=== PATIENT | female | born 1935 | race Caucasian/White ===

== ENCOUNTER 2016-12-30 09:04 | Inpatient (IN) ==
--- NOTE | 2016-12-30 09:22 | Emergency Department Report ---
General Adult HPI - General Chief complaint: Syncope Stated complaint: when standing up she passes out,light headed Time Seen by Provider: 12/30/16 09:20 Source: patient, family Mode of arrival: wheelchair Limitations: no limitations - History of Present Illness HPI narrative: 81-year-old female presents to the emergency department with the chief complaint of 2 syncopal episodes. Patient had the 1st syncopal episode around midnight. She did not suffer any injury with either episode. Patient denies any pain or discomfort. Patient had her 2nd syncopal episode around 7:30 this morning. Patient noted that the syncopal episodes occurred when the residential staff was getting the patient up to walk. Patient denies any pain or discomfort. Patient has no complaints currently. She denies being ill recently. She was at her care facility when the incident occurred. She is currently asymptomatic. - Related Data Home Medications Medication Instructions Recorded Confirmed Acetaminophen 650 mg PO Q4H PRN 12/30/16 12/30/16 Acetaminophen [Pain Reliever] 500 mg PO PRN PRN 12/30/16 12/30/16 Aspirin [[place] Aspirin] 81 mg PO DAILY 12/30/16 12/30/16 Baclofen [Lioresal] 10 mg PO BID 12/30/16 12/30/16 Carbidopa/Levodopa [Rytary ER 3 cap PO BID 12/30/16 12/30/16 23.75 mg-95 mg Cap] Citalopram [Celexa] 10 mg PO DAILY 12/30/16 12/30/16 Cranberry Fruit [Cranberry] 400 mg PO DAILY 12/30/16 12/30/16 Donepezil [Aricept] 10 mg PO HS 12/30/16 12/30/16 Fluticasone Nasal [place] [Flonase] 1 spray TEJAS DAILY 12/30/16 12/30/16 Gabapentin [Neurontin] 400 mg PO HS 12/30/16 12/30/16 Guaifenesin/Dextromethorphan 10 ml PO Q4H PRN 12/30/16 12/30/16 [Guaifenesin Dm Syrup] Levothyroxine Tab [Synthroid] 75 mcg PO ACB 12/30/16 12/30/16 Loratadine [Claritin] 10 mg PO DAILY 12/30/16 12/30/16 Multivitamin with Minerals 1 each PO DAILY 12/30/16 12/30/16 [Kae-M-Kvyg-Minerals] Propylene Glycol/Peg 400 [Systane 1 drop EACH EYE BID PRN 12/30/16 12/30/16 0.3-0.4% Eye Drops] Triamterene/Hydrochlorothiazid 1 each PO DAILY 12/30/16 12/30/16 [Dyazide 37.5-25 Capsule] dilTIAZem HCl [Diltiazem 24Hr ER] 180 mg PO DAILY 12/30/16 12/30/16 Allergies Allergy/AdvReac Type Severity Reaction Status Date / Time morphine Allergy Mild Verified 02/12/08 08:46 procaine Allergy Mild Verified 02/12/08 08:46 Sulfa (Sulfonamide Allergy Mild Verified 02/12/08 08:46 Antibiotics) Review of Systems Constitutional: Denies: fever, chills Eyes: Denies: eye pain, vision change ENT: Denies: ear pain, throat pain Cardiovascular: Denies: chest pain, palpitations Respiratory: Denies: cough, dyspnea Gastrointestinal: Denies: abdominal pain, nausea, vomiting, diarrhea Genitourinary: Denies: urgency, dysuria Musculoskeletal: Denies: back pain, arthralgia Integumentary: Denies: erythema, rash Neurological: Denies: headache, numbness Psychiatric: Denies: anxiety, depression Endocrine: Denies: fatigue, heat or cold intolerance Hematological/Lymphatic: Denies: easy bleeding, easy bruising Allergic/Immunologic: Denies: facial swelling, urticaria PFSH Patient Stated Medical History Alzheimer's Disease Yes Parkinson's Disease Yes Hypertension Yes Hx Urinary Tract Infection Yes Alzheimer's dementia, depression, hypothyroid, UTI, hypertension, abnormality of gait, rhinitis, generalized weakness Surgical History: Colonoscopy Family History: Reviewed and noncontributory - Social History Smoking status: Never smoker Substance use type: does not use Alcohol intake frequency: does not drink Physical Exam - Limitations Limitations: no limitations - General General appearance: alert, in no apparent distress - Normal Exams: Head:: Normocephalic without trauma Eyes:: Pupils are PERRLA w/ EOMI, No scleral icterus, irritation, or foreign bodies noted ENMT:: No facial trauma, nasal exudates, pharyngeal erythema, or exudates are noted Dental: No fractured, loose, or missing teeth noted Neck:: Full range of motion, without adenopathy, JVD, bruits or thyromegaly Chest/Respirations:: Clear all douglass, with good airflow, and symmetry bilaterally Cardiovascular:: Regular rate and rhythm, without murmur or gallop, Pulses 2+ all extremities, capillary refill, <2 seconds all extremities Abdomen:: Bowel sounds positive, soft, non-tender, non-distended, no hepatosplenomegaly, masses or bruits noted Lymphatic:: No lymphadenopathy, or lymphedema noted Musculoskeletal:: No tenderness, or deformity noted, good range of motion, all extremities Integumentary:: No rashes, hives, or bruising noted, hair and nails, without abnormality Neurological:: Patient is alert, and oriented, cranial nerves, motor/sensory/ cerebellar, exams w/o gross deficits, to observation (alert and oriented 4. CN 2-12 intact. Sensation intact. Normal strength. Normal motor. Normal coordination. Normal speech. Absent Babinski bilaterally. Reflexes 2/4 in all extremities. Unremarkable neurological exam. No focal neurologic deficit. Gait unable to be tested due to concern for syncope.) Psychiatric:: Patient exhibits, appropriate attention, emotion and affect Course Vital Signs Temperature 97.6 F 12/30/16 09:10 Pulse Rate 56 L 12/30/16 09:10 Respiratory Rate 20 12/30/16 09:10 Blood Pressure 138/70 12/30/16 09:10 Pulse Oximetry 99 12/30/16 09:10 Temperature 96.3 F L 12/30/16 12:06 Pulse Rate 62 12/30/16 12:11 Respiratory Rate 16 12/30/16 12:11 Blood Pressure 132/76 12/30/16 12:11 Pulse Oximetry 96 12/30/16 12:06 Medical Decision Making - [facility] Narrative Medical decision making narrative: Labs/imaging were discussed in detail with the patient and family and questions are answered. Patient is given 500 mL normal saline intravenously times one with improvement of symptoms. Due to the fact that the patient has had 2 syncopal episodes patient will be admitted to the service of the hospitalist Dr. Gilbert for further evaluation and treatment. Dr. Gilbert is in agreement with the current plan of management. Patient was discussed with Dr. Chapin of cardiology who recommends observation as the patient was noted to have a left bundle branch block on her EKG and no other EKG available for comparison. She is asymptomatic with regards to chest pain or shortness of breath. She has a negative troponin in the emergency Department. Patient is admitted to the hospital in improved condition. Patient and family are in agreement with the current plan of management. - Differential Diagnosis UTI, metabolic process, dehydration, syncope - Lab Data Result diagrams: 12/30/16 09:41 12/30/16 09:41 Lab Results 12/30/16 12/30/16 12/30/16 Range/Units 09:41 09:41 10:08 WBC 8.4 (4.5-11.0) T/MM3 RBC 4.34 (4.00-5.20) M/MM3 Hgb 13.3 (12-16) GM/DL Hct 40.3 (36-46) % MCV 92.9 (80-100) UM3 MCH 30.6 (26-34) UUG MCHC 33.0 (31-37) GM/DL RDW Std Deviation 43.6 (36.9-50.2) FL Plt Count 295 (130-400) T/MM3 MPV 8.7 L (9.4-12.4) UM3 Immature Gran % (Auto) 0.1 (0.0-0.5) % Neut % (Auto) 71.6 H (33-66) % Lymph % (Auto) 19.8 L (23-45) % [place] % (Auto) 6.2 (0-9.0) % Eos % (Auto) 2.1 (0-4) % Baso % (Auto) 0.2 (0-2) % Neut # (Auto) 6.0 (1.8-7.7) T/MM3 Lymph # (Auto) 1.7 (1-4.8) T/MM3 [place] # (Auto) 0.5 (0-0.8) T/MM3 Eos # (Auto) 0.2 (0-0.5) T/MM3 Baso # (Auto) 0.0 (0-0.2) T/MM3 Abs Immat Gran (auto) 0.01 (0.00-0.03) T/MM3 Turbidity < 20 (0-20) Sodium 140 (134-144) MEQ/L Potassium 4.2 (3.6-5) MEQ/L Chloride 95 L (98-107) MEQ/L Carbon Dioxide 32 H (22-30) MEQ/L Anion Gap 13 (5-15) MEQ/L BUN 31.0 H (7-17) MG/DL Creatinine 1.4 H (0.7-1.2) MG/DL GFR Calculation 36 BUN/Creatinine Ratio 22 (6-26) RATIO Glucose 140 H (65-110) MG/DL Calculated Osmolality 278 (261-280) MOSM/KG Calcium 9.6 (8.4-10.2) MG/DL Total Bilirubin 0.70 (0.20-1.30) MG/DL Icterus Index < 2 (0-7) AST 19 (14-36) U/L ALT 18 (9-52) U/L Alkaline Phosphatase 58 (38-126) U/L Troponin I < 0.012 (0-0.12) ng/ml Total Protein 7.8 (6.3-8.2) G/DL Albumin 4.2 (3.5-5.0) G/DL Globulin 3.6 (2.4-3.6) G/DL Albumin/Globulin Ratio 1.2 (1.1-2.2) RATIO Specimen Hemolysis < 15 (0-25) Ur Collection Type Urine, catheter Urine Color Yellow (YELLOW) Urine Clarity Cloudy Urine pH 7.0 (5.0-8.0) Ur Specific [place] 1.010 L (1.015-1.025) Urine Protein Negative (NEGATIVE) Urine Glucose (UA) Negative (NEGATIVE) Urine Ketones Negative (NEGATIVE) Urine Occult Blood Trace-intact (NEGATIVE) Urine Nitrate Negative (NEGATIVE) Urine Bilirubin Negative (NEGATIVE) Urine Urobilinogen 0.2 (NORMAL) EU/DL Ur Leukocyte Esterase 1+ A (NEGATIVE) Urine RBC 1-3 (0-3) /HPF Urine WBC 5-10 H (0-5) /HPF Ur Squamous Epith Cells 0-5 Urine Bacteria Trace H (NEGATIVE) Ur Culture Indicated? Cult not indicated - Radiology Data Chest x-ray: No acute processes. CT head: No acute processes. - EKG Data EKG #1 EKG results narrative: Sinus bradycardia. 56 bpm. No STEMI. Left bundle branch block noted. No CP. Disposition Clinical Impression: recurrent syncope Disposition: 02 To [facility] Condition: Improved Time of Disposition: 11:15 (Admit. Dr. Gilbert. ) - Seen By: physician
[2016-12-30] MEDS: SALINE FLUSH 10ml SYRINGE IVF PRN (09:41)
[2016-12-30] MEDS ORDERED: NS 1,000 ML IV ONE (10:44)
[2016-12-30] MEDS ORDERED: ACETAMINOPHEN 500 MG TABLET PO SCH (12:45)
[2016-12-30] MEDS: NS 1,000 ML IV SCH ×2 (12:58→23:00)
[2016-12-30] MEDS ORDERED: ACETAMINOPHEN 500 MG TABLET PO PRN (13:06)
[2016-12-30 13:13] VITALS: BMI 25.4
--- NOTE | 2016-12-30 13:19 | History & Physical Report ---
<Linda Ng V - Last Filed: 12/30/16 13:16> History of Present Illness Date: 12/30/16 Chief complaint: syncopal episode HPI: Patient is an 81-year-old female brought to the emergency room today for evaluation following a syncopal episode. Patient has had 2 episodes since midnight last night in which shelter staff assisted patient with bedside commode. During this time, patient became unresponsive, pale, eyes back in her head. Family reports this lasted for approximately 5 minutes each time. Further evaluation was performed in the emergency room. CBC is normal, electrolytes normal, renal function slightly elevated with a BUN of 31, creatinine 1.4, glucose 140. Troponin negative. A urinalysis is obtained. It does show 1+ leukocyte esterase with 5-10 WBCs and a trace bacteria is negative. Twelve-lead EKG shows sinus rhythm with left bundle branch block. It is unclear if this is new. CT scan of the head did not reveal any acute intracranial abnormality or hemorrhage. Orthostatic vital signs are obtained- lying-153/75, pulse 59, sitting 142/65, pulse 67, standing 132/76, pulse 64. She is asymptomatic during orthostatics. Given multiple syncopal episodes. The hospitalist services were contacted and accepted patient for outpatient observation admission for further evaluation and treatment. Beatriz is seen while she is still in the emergency room accompanied by her daughter and . She has a very flat affect with a known history of dementia and Parkinson's. Majority of information and all history is obtained from and daughter. Did do indicate that she is a do not resuscitate and this orders written [facility] Patient Stated Medical History Alzheimer Dementia Vascular Parkinsonism Hypertension Hyperlipidemia Hypothyroidism Depression Chronic urinary incontinence Surgical History: EEG-2012. Vaginal hysterectomy-2012. Cataract extraction- 2011. Colonoscopy-2007. Cystoscopy. Repair of rectocele Family History: Father-multiple system atrophy, prostate cancer Mother-COPD, congestive heart failure. Sister with Alzheimer's and breast cancer - Social History Smoking status: Never smoker Substance use type: does not use Alcohol intake frequency: does not drink Housing: shelter Current [place] Social history: PCP Dr Aguilar Medications Home Medications Medication Instructions Recorded Confirmed Type Acetaminophen 650 mg PO Q4H PRN 12/30/16 12/30/16 History Acetaminophen [Pain Reliever] 500 mg PO PRN PRN 12/30/16 12/30/16 History Aspirin [[place] Aspirin] 81 mg PO DAILY 12/30/16 12/30/16 History Baclofen [Lioresal] 10 mg PO BID 12/30/16 12/30/16 History Carbidopa/Levodopa [Rytary ER 3 cap PO BID 12/30/16 12/30/16 History 23.75 mg-95 mg Cap] Citalopram [Celexa] 10 mg PO DAILY 12/30/16 12/30/16 History Cranberry Fruit [Cranberry] 400 mg PO DAILY 12/30/16 12/30/16 History Donepezil [Aricept] 10 mg PO HS 12/30/16 12/30/16 History Fluticasone Nasal [place] [Flonase] 1 spray TEJAS DAILY 12/30/16 12/30/16 History Gabapentin [Neurontin] 400 mg PO HS 12/30/16 12/30/16 History Guaifenesin/Dextromethorphan 10 ml PO Q4H PRN 12/30/16 12/30/16 History [Guaifenesin Dm Syrup] Levothyroxine Tab [Synthroid] 75 mcg PO ACB 12/30/16 12/30/16 History Loratadine [Claritin] 10 mg PO DAILY 12/30/16 12/30/16 History Multivitamin with Minerals 1 each PO DAILY 12/30/16 12/30/16 History [Ddv-R-Yezc-Minerals] Propylene Glycol/Peg 400 [Systane 1 drop EACH EYE BID PRN 12/30/16 12/30/16 History 0.3-0.4% Eye Drops] Triamterene/Hydrochlorothiazid 1 each PO DAILY 12/30/16 12/30/16 History [Dyazide 37.5-25 Capsule] dilTIAZem HCl [Diltiazem 24Hr ER] 180 mg PO DAILY 12/30/16 12/30/16 History Allergies Allergy/AdvReac Type Severity Reaction Status Date / Time morphine Allergy Mild Verified 02/12/08 08:46 procaine Allergy Mild Verified 02/12/08 08:46 Sulfa (Sulfonamide Allergy Mild Verified 02/12/08 08:46 Antibiotics) Exam Vital Signs: Temperature 96.3 F L 12/30/16 12:06 Pulse Rate 62 12/30/16 12:11 Respiratory Rate 16 12/30/16 12:11 Blood Pressure 132/76 12/30/16 12:11 Pulse Oximetry 96 12/30/16 12:06 Telemetry Rhythm: Sinus Rhythm Height/Weight/BMI: Height 1.6 m Weight 65.1 kg Body Mass Index 25.4 - Constitutional Present: no acute distress, well nourished, well developed - Routine HEENT Exam Eye: Present: EOMI ENT: Present: mucous membranes moist, dentition normal - Routine Respiratory Exam Present: CTA bilaterally. Absent: wheezes - Routine Cardiovascular Exam Present: RRR, S1, S2. Absent: murmur - Routine Abdominal Exam Present: soft, normoactive bowel sounds, non distended. Absent: tenderness - Routine Extremities Exam Present: full ROM, pulses intact - Routine Back/Spine/Pelvis Exam Back/Spine: Present: full ROM - Routine Skin Exam Present: dry, warm - Routine Neurological Exam Present: alert, CN II-XII intact, moving all extremities, vision grossly intact , hearing grossly intact - Routine Psychiatric Exam Comments: Flat affect Results - Labs CBC & Chem 7: 12/30/16 09:41 12/30/16 09:41 Assessment and Plan (1) Syncopal episodes Current visit: Yes Status: Acute Resuscitation Status: Do Not Resuscitate Assessment and Plan: Impression Syncopal episode Dementia Vascular parkinsonism Hypertension Hyperlipidemia Hypothyroidism Depression Chronic urinary incontinence Plan Admit patient to outpatient observation under the care of Dr. Gilbert for further evaluation. Monitor patient. Cardiac telemetry to evaluate for dysrhythmias. May consider further work up such as ECHO Asked nursing staff to obtain orthostatic vital signs every shift. Given the patient was orthostatic with a 20 point drop in her systolic pressure in the emergency room. This was completed following 500 ML's of IV fluids in We'll continue with normal saline and 100 ML per hour. Would hold off at this point from treating urinalysis, urine cultures pending. Patient has had a history of chronic bacteriuria. On 12/09 urine culture reveled Streptococcus [place]. This was not treated as she was SCDs to bilateral lower extremity for DVT prophylaxis She may have regular diet Will review home medications discuss further orders and plan of care with attending, Dr. Gilbert. At time of discharge medical care will return to primary care provider, Dr. Aguilar [facility] Course Summary Disclaimer: The visit summary below is not to be considered part of the above Progress Note. Hospital Course: 12/30/16 13:30 Impression Syncopal episode Dementia Vascular parkinsonism Hypertension Hyperlipidemia Hypothyroidism Depression Chronic urinary incontinence Plan Admit patient to outpatient observation under the care of Dr. Gilbert for further evaluation. Monitor patient. Cardiac telemetry to evaluate for dysrhythmias. May consider further work up such as ECHO Asked nursing staff to obtain orthostatic vital signs every shift. Given the patient was orthostatic with a 20 point drop in her systolic pressure in the emergency room. This was completed following 500 ML's of IV fluids in We'll continue with normal saline and 100 ML per hour. Would hold off at this point from treating urinalysis, urine cultures pending. Patient has had a history of chronic bacteriuria. On 12/09 urine culture reveled Streptococcus [place]. This was not treated as she was SCDs to bilateral lower extremity for DVT prophylaxis She may have regular diet Will review home medications discuss further orders and plan of care with attending, Dr. Gilbert. At time of discharge medical care will return to primary care provider, Dr. Aguilar <VladimirWilda L - Last Filed: 12/30/16 15:59> History of Present Illness Date: 12/30/16 [facility] Patient Stated Medical History Alzheimer's Disease Yes Parkinson's Disease Yes Transient Ischemic Attacks ( Yes: multiple "mini strokes" per family TIA) Hypertension Yes Hx Urinary Tract Infection Yes Exam Vital Signs: Temperature 96.3 F L 12/30/16 12:06 Pulse Rate 58 L 12/30/16 15:20 Respiratory Rate 18 12/30/16 15:20 Blood Pressure 99/52 12/30/16 15:21 Pulse Oximetry 95 12/30/16 15:20 Height/Weight/BMI: Height 1.6 m Weight 65.1 kg Body Mass Index 25.4 Results - Labs CBC & Chem 7: 12/30/16 09:41 12/30/16 09:41 Assessment and Plan (1) Syncopal episodes Current visit: Yes Status: Acute Assessment and Plan: 12/30/2016-I reviewed this chart, the patient history, and the RADIOLOGY RECEPTIONIST's/PA's documented findings as above. We discussed and formulated the assessment and plan as above with the additions below.-Dr. Gilbert The patient was seen this afternoon accompanied by her daughter and . She does not recall the events of last evening when she had 2 syncopal episodes. She states she is feeling fine now. She is lying in bed and is not lightheaded. She has gotten up to the bedside commode with nursing assist without incident. She denies any chest pain or shortness of breath. She denies any palpitations. She has not been ill recently with fevers, chills, sweats, vomiting, diarrhea, cough or upper respiratory symptoms. Family is not aware of any new medications. Since August 2016, triamterene hydrochlorothiazide has been started and diltiazem was increased from 120 mg a day up to 180 mg a day. It's unknown when these medications were started or increased. The patient does not have a history of heart disease, atrial fibrillation or irregular heart rhythm that she or her family is aware of. Per her daughter, she does not drink much fluids but this has been chronic. The patient has not had any other episodes of syncope or near syncope. The patient's father had multiple system atrophy and had syncopal episodes. On exam she is alert with flat affect. She is in no acute distress. She has mild upper extremity tremulousness. Chest is clear to auscultation. Cardiovascular reveals a borderline bradycardic rate with irregular rhythm and a 2/6 systolic murmur. Abdomen is soft and nontender. Extremities are free of edema. Impression Syncopal episode of undetermined etiology. This may be due to autonomic dysfunction related to her vascular Parkinson's along with use of antihypertensives and diuretics versus an arrhythmia versus PE versus other. The patient's oxygenation is normal and respiratory rate is normal as well. Left bundle branch block-no previous EKG here for comparison History of hypertension Vascular Parkinson's Alzheimer's dementia Vascular dementia Urinary incontinence Mild chronic kidney disease versus mild acute renal failure Plan We'll give cautious IV fluids. Place on telemetry. Restart home meds except, hold triamterene hydrochlorothiazide and diltiazem for now. Increase activity as tolerated. Orthostatics twice daily Recheck basic metabolic profile tomorrow We'll obtain an echocardiogram regarding syncope and left bundle branch block Discussed plan at length with the patient's family. Hospital Course Summary Disclaimer: The visit summary below is not to be considered part of the above Progress Note.
[2016-12-30] MEDS ORDERED: GUAIFENESIN/DM 5ml ORAL LIQUID PO PRN (13:39)
[2016-12-30] MEDS ORDERED: ACETAMINOPHEN 325 MG TABLET PO PRN (15:40)
[2016-12-30] MEDS ORDERED: SYSTANE EYE DROPS 0.7ml EACH EYE PRN (15:40)
[2016-12-30] MEDS: DONEPEZIL 10 MG TABLET PO SCH (21:58)
[2016-12-30] MEDS: RYTARY PO SCH (21:59)
[2016-12-30] MEDS: BACLOFEN 10 MG TABLET PO SCH (23:05)
[2016-12-30] MEDS: GABAPENTIN 400 MG CAPSULE PO SCH (23:05)
[2016-12-31] MEDS: LORATADINE 10 MG TABLET PO SCH (06:31)
[2016-12-31] MEDS: LEVOTHYROXINE 75 MCG TABLET PO SCH (06:31)
[2016-12-31] MEDS ORDERED: [UNRECOGNIZED DRUG - OTHER] PO SCH (09:00)
[2016-12-31] MEDS ORDERED: TRIAMTERENE/HCTZ 37.5 MG-25 MG TABLET PO SCH (09:00)
[2016-12-31] MEDS ORDERED: DILTIAZEM HCL 180 MG PO SCH (09:00)
[2016-12-31] MEDS ORDERED: [UNRECOGNIZED DRUG - OTHER] PO SCH (09:00)
[2016-12-31] MEDS ORDERED: CRANBERRY FRUIT 400 MG PO SCH (09:00)
[2016-12-31] MEDS: BACLOFEN 10 MG TABLET PO SCH ×2 (09:07→20:23)
[2016-12-31] MEDS: FLUTICASONE NASAL SPRAY 50mcg EA NOSTRIL SCH (09:07)
[2016-12-31] MEDS: RYTARY PO SCH ×2 (09:08→20:35)
[2016-12-31] MEDS: NS 1,000 ML IV SCH (09:08)
[2016-12-31] MEDS: MULTI-VITAMIN + MINERAL TABLET PO SCH (09:08)
[2016-12-31] MEDS: ASPIRIN 81 MG CHEWABLE TABLET PO SCH (09:08)
[2016-12-31] MEDS: CITALOPRAM 10 MG TABLET PO SCH (09:08)
--- NOTE | 2016-12-31 09:27 | CT Scan Report ---
Indication: syncope PROCEDURE: CT head/brain wo con: Encounter: Initial Comparison: None Technique: Axial CT images through the head were performed without contrast. Iterative Reconstruction dose reducing technique was utilized. FINDINGS: Mild generalized atrophy. The ventricles are of normal size, shape, and contour for the patient's age. There are extensive areas of low attenuation in the white matter which most likely represent changes from chronic microvascular ischemia. The brainstem, cerebellum, and cerebral hemispheres otherwise have a normal morphology and CT attenuation. There is no evidence of midline displacement. No hemorrhage, signs of acute territorial stroke, mass effect, mass lesions, or edema is evident. The visualized portions of the skull base, midface, and calvarium demonstrate no abnormality. The paranasal sinuses are well aerated and free of significant disease. The tympanic and mastoid cavities appear normal. IMPRESSION: No acute intracranial abnormality or hemorrhage. There is a preliminary report by [facility]. .
--- NOTE | 2016-12-31 09:28 | XRay Report ---
Indication: syncope PROCEDURE: XR chest 1V: Encounter: Initial Comparison: None FINDINGS: The lungs are clear. There is no abnormal airspace opacity, pleural effusion or pneumothorax identified. The heart size, pulmonary vasculature and mediastinum are within normal limits. No significant skeletal abnormality is seen. IMPRESSION: No acute cardiopulmonary abnormality. .
--- NOTE | 2016-12-31 13:56 | Progress Note ---
<ShirazSusanne D - Last Filed: 12/31/16 13:53> - Date 12/31/16 Subjective: Beatriz feels fine, and would very much like to go home. We reviewed her recent SBP, which dropped from 148 to 95 from sitting to standing. She doesn't recall if she had any symptoms, but her nurse reports that she did not appear weak, nor have any apparent dizziness. Her tremors worsened the longer she stood. Neither she nor her know if her 2 syncopal events preceding admission occurred while transferring to the commode or while urinating/having a BM. Beatriz denies any chest pain, SOA, or palpitations. She became tearful when we talked about staying in the hospital. Her has many questions about whether or not these events will change their lifestyle - ie can he still take her out to social events/mormonism/store? Objective Vital signs: Temperature 97.1 F 12/31/16 07:00 Pulse Rate 65 12/31/16 13:16 Respiratory Rate 18 12/31/16 07:00 Blood Pressure 95/58 12/31/16 13:18 Pulse Oximetry 98 12/31/16 07:00 Height/Weight/BMI: Height 1.6 m Weight 68.7 kg Body Mass Index 25.4 - Constitutional Present: no acute distress, well nourished, well developed - Routine HEENT Exam Eye: Absent: conjunctival icterus, scleral injection ENT: Present: oropharynx clear - Routine Respiratory Exam Present: CTA bilaterally - Routine Cardiovascular Exam Present: RRR, S1, S2, murmur - Routine Abdominal Exam Present: soft, normoactive bowel sounds, non tender - Routine Extremities Exam Present: no edema - Routine Skin Exam Present: intact, dry, warm - Routine Neurological Exam Present: alert, oriented X3, tremors (particularly noted to left hand) - Routine Psychiatric Exam Present: cooperative Results - Labs CBC & Chem 7: 12/30/16 09:41 12/31/16 04:41 Assessment and Plan (1) Syncopal episodes Current visit: Yes Status: Acute DVT Prophylaxis: SCD's Resuscitation Status: Full Code Assessment and Plan: Impression Syncopal episode of undetermined etiology. (This may be due to autonomic dysfunction related to her vascular Parkinson's along with use of antihypertensives and diuretics versus an arrhythmia versus PE versus other.) Left bundle branch block-no previous EKG here for comparison History of hypertension Vascular Parkinson's Alzheimer's dementia Vascular dementia Urinary incontinence Mild chronic kidney disease versus mild acute renal failure Plan Pt became orthostatic this afternoon with a >50 mmHg drop in SBP from 148 to 95. Discussed options with Dr. Gilbert - likely will give additional IVF. Continue to hold triamterene hydrochlorothiazide and diltiazem Renal function has improved and her electrolytes are stable. Echo ordered, not yet performed. Hospital Course Summary Disclaimer: The visit summary below is not to be considered part of the above Progress Note. Hospital Course: 12/30/16 13:30 Impression Syncopal episode Dementia Vascular parkinsonism Hypertension Hyperlipidemia Hypothyroidism Depression Chronic urinary incontinence Plan Admit patient to outpatient observation under the care of Dr. Gilbert for further evaluation. Monitor patient. Cardiac telemetry to evaluate for dysrhythmias. May consider further work up such as ECHO Asked nursing staff to obtain orthostatic vital signs every shift. Given the patient was orthostatic with a 20 point drop in her systolic pressure in the emergency room. This was completed following 500 ML's of IV fluids in We'll continue with normal saline and 100 ML per hour. Would hold off at this point from treating urinalysis, urine cultures pending. Patient has had a history of chronic bacteriuria. On 12/09 urine culture reveled Streptococcus Viridians. This was not treated as she was SCDs to bilateral lower extremity for DVT prophylaxis She may have regular diet Will review home medications discuss further orders and plan of care with attending, Dr. Gilbert. At time of discharge medical care will return to primary care provider, Dr. Aguilar 12/31/16 Pt became orthostatic this afternoon with a >50 mmHg drop in SBP from 148 to 95. Discussed options with Dr. Gilbert - likely will give additional IVF. Continue to hold triamterene hydrochlorothiazide and diltiazem Renal function has improved and her electrolytes are stable. Echo ordered, not yet performed. <Wilda Gilbert L - Last Filed: 12/31/16 15:20> - Date 12/31/16 Objective Vital signs: Temperature 97.1 F 12/31/16 07:00 Pulse Rate 65 12/31/16 13:16 Respiratory Rate 18 12/31/16 07:00 Blood Pressure 95/58 12/31/16 13:18 Pulse Oximetry 98 12/31/16 07:00 Height/Weight/BMI: Height 1.6 m Weight 68.7 kg Body Mass Index 25.4 Results - Labs CBC & Chem 7: 12/30/16 09:41 12/31/16 04:41 Assessment and Plan (1) Syncopal episodes Current visit: Yes Status: Acute Assessment and Plan: 12/31/2016-I reviewed this chart, the patient history, and the TRAIN ENGINEER's/PA's documented findings as above. We discussed and formulated the assessment and plan as above with the additions below.-Dr. Gilbert The patient was seen today accompanied by her . She denies any complaints. Her affect is very flat. She just wants to go home. She denied any lightheadedness with standing today. She denies any pain. She denies any dyspnea. On exam she is alert and in no acute distress. Chest is clear to auscultation. Cardiovascular reveals a borderline bradycardic rate with irregular rhythm. Abdomen is soft and nontender. Extremities are free of edema. Neurologic reveals flat affect and mild tremor in her arms. Impression and plan Patient continues to have a drop in blood pressure with standing. With her normal low heart rate and normal oxygenation without chest pain I doubt this is PE. 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 Per her residential records, she did receive both of these medications yesterday morning. It may take a little more time for the medication to leave her system. Will give another 500 ML's of normal saline today. We'll continue to monitor orthostatics twice daily off of antihypertensives. Hopefully, orthostasis will improve off of blood pressure medication. If it is not improving, may need to consider Florinef or midodrine. Will start a high GABRIEL hose today. Continue to monitor on telemetry. At this time, the patient has not had any arrhythmias. Regarding questions about activity level, will need to see how her blood pressure responds to current treatment. Change to inpatient status today secondary to continued orthostasis off of blood pressure medication requiring IV fluids. She is at high risk for falls if she were to be discharged without control of orthostatic hypotension. Hospital Course Summary Disclaimer: The visit summary below is not to be considered part of the above Progress Note.
[2016-12-31] MEDS: DONEPEZIL 10 MG TABLET PO SCH (20:23)
[2016-12-31] MEDS: GABAPENTIN 400 MG CAPSULE PO SCH (20:23)
[2016-12-31] MEDS: SALINE FLUSH 10ml SYRINGE IVF PRN (20:23)
[2017-01-01] MEDS: SALINE FLUSH 10ml SYRINGE IVF PRN (06:01)
[2017-01-01] MEDS: LEVOTHYROXINE 75 MCG TABLET PO SCH (06:02)
[2017-01-01] MEDS: LORATADINE 10 MG TABLET PO SCH (06:02)
[2017-01-01] MEDS: MULTI-VITAMIN + MINERAL TABLET PO SCH (09:32)
[2017-01-01] MEDS: BACLOFEN 10 MG TABLET PO SCH ×2 (09:32→21:37)
[2017-01-01] MEDS: CITALOPRAM 10 MG TABLET PO SCH (09:32)
[2017-01-01] MEDS: ASPIRIN 81 MG CHEWABLE TABLET PO SCH (09:32)
[2017-01-01] MEDS: FLUTICASONE NASAL SPRAY 50mcg EA NOSTRIL SCH (09:32)
[2017-01-01] MEDS: RYTARY PO SCH ×2 (09:33→21:38)
--- NOTE | 2017-01-01 13:38 | Progress Note ---
- Date 01/01/17 Subjective: The patient is seen today accompanied by her . The patient states she is feeling well. Her nurse reports that she went to the bathroom with 2 person assist and had a near syncopal episode where she started leaning backwards and her eyes were glazed and she was minimally responsive. This appeared to resolve fairly quickly. By the time they could check a blood pressure she was not hypotensive. Prior to this episode, orthostatic blood pressures had improved. Because of her tremulousness, is very difficult to obtain a blood pressure and she had been standing for several minutes before her standing blood pressure can be obtained. She denies any chest pain or shortness of breath. She is eating and drinking well. Objective Vital signs: Temperature 97.6 F 01/01/17 01:21 Pulse Rate 76 01/01/17 08:05 Respiratory Rate 18 01/01/17 01:21 Blood Pressure 158/81 H 01/01/17 08:05 Pulse Oximetry 95 01/01/17 08:05 Height/Weight/BMI: Height 1.6 m Weight 66.9 kg Body Mass Index 25.4 Comments: This morning blood pressure lying 150/72 with a pulse of 64. Blood pressure sitting 140/62 with pulse of 70. Standing blood pressure 147/86 with pulse of 78. Yesterday afternoon blood pressure sitting was 148/69 and standing was 95/58. GEN-alert, no acute distress CV-regular rate and rhythm CHEST-clear to auscultation bilaterally ABD-soft, nontender with positive bowel sounds -no King EXT-no edema NEURO-no focal deficits. She does have tremulousness and memory decline SKIN-warm and dry Results - Labs CBC & Chem 7: 01/01/17 04:43 01/01/17 04:43 Assessment and Plan (1) Syncopal episodes Current visit: Yes Status: Acute Assessment and Plan: 01/01/2017 -Dr. Gilbert Impression Syncopal episode of undetermined etiology. (This may be due to autonomic dysfunction related to her vascular Parkinson's along with use of antihypertensives and diuretics versus an arrhythmia versus PE versus other.)- Orthostatics are better today but the patient had an episode of near syncope when up to the bathroom. Left bundle branch block-no previous EKG here for comparison-echocardiogram is pending History of hypertension -triamterene hydrochlorothiazide 37.5/25 and diltiazem 180 mg daily are on hold Vascular Parkinson's Alzheimer's dementia Vascular dementia Urinary incontinence Mild chronic kidney disease versus mild acute renal failure Plan Orthostatic blood pressures have improved today off of blood pressure medications, but the patient had a near syncopal event when up to the bathroom. Discussed with who is on-call for the patient's neurologist, Dr. Roldan. He recommended decreasing baclofen to 5 mg by mouth twice a day. If she was still having symptoms and was not having difficulties with muscle spasms, could discontinue baclofen and see if orthostatic symptoms resolved. Could also consider adding either Midodrine or Florinef. He further stated Parkinson's patients could have symptoms of presyncope even without significant drop in blood pressure. Echocardiogram is pending Discussed with case management. Discussed with neurology. Discussed with the patient's . The patient is not stable for dismissal today secondary to near syncopal event. Hospital Course Summary Disclaimer: The visit summary below is not to be considered part of the above Progress Note. Hospital Course: 12/30/16 13:30 Impression Syncopal episode Dementia Vascular parkinsonism Hypertension Hyperlipidemia Hypothyroidism Depression Chronic urinary incontinence Plan Admit patient to outpatient observation under the care of Dr. Gilbert for further evaluation. Monitor patient. Cardiac telemetry to evaluate for dysrhythmias. May consider further work up such as ECHO Asked nursing staff to obtain orthostatic vital signs every shift. Given the patient was orthostatic with a 20 point drop in her systolic pressure in the emergency room. This was completed following 500 ML's of IV fluids in We'll continue with normal saline and 100 ML per hour. Would hold off at this point from treating urinalysis, urine cultures pending. Patient has had a history of chronic bacteriuria. On 12/09 urine culture reveled Streptococcus Viridians. This was not treated as she was SCDs to bilateral lower extremity for DVT prophylaxis She may have regular diet Will review home medications discuss further orders and plan of care with attending, Dr. Gilbert. At time of discharge medical care will return to primary care provider, Dr. Aguilar 12/31/16 Pt became orthostatic this afternoon with a >50 mmHg drop in SBP from 148 to 95. Discussed options with Dr. Gilbert - likely will give additional IVF. Continue to hold triamterene hydrochlorothiazide and diltiazem Renal function has improved and her electrolytes are stable. Echo ordered, not yet performed.
[2017-01-01] MEDS: DONEPEZIL 10 MG TABLET PO SCH (21:37)
[2017-01-01] MEDS: GABAPENTIN 400 MG CAPSULE PO SCH (21:37)
[2017-01-02] MEDS: LEVOTHYROXINE 75 MCG TABLET PO SCH (06:09)
[2017-01-02] MEDS: LORATADINE 10 MG TABLET PO SCH (06:09)
[2017-01-02] MEDS: BACLOFEN 10 MG TABLET PO SCH ×2 (09:12→21:36)
[2017-01-02] MEDS: FLUTICASONE NASAL SPRAY 50mcg EA NOSTRIL SCH (09:12)
[2017-01-02] MEDS: ASPIRIN 81 MG CHEWABLE TABLET PO SCH (09:12)
[2017-01-02] MEDS: MULTI-VITAMIN + MINERAL TABLET PO SCH (09:12)
[2017-01-02] MEDS: RYTARY PO SCH ×2 (09:12→21:37)
[2017-01-02] MEDS: CITALOPRAM 10 MG TABLET PO SCH (09:12)
--- NOTE | 2017-01-02 10:11 | Echocardiogram ---
DATE OF PROCEDURE January 01, [address] Wilda Gilbert This is a two-dimensional echo with spectral Doppler, color-flow and M-mode. It was obtained in a patient with syncope and abnormal EKG. Left atrial dimension is at the upper limits of normal. Left ventricle end- diastolic dimension is normal. Left ventricle wall thickness is normal. LV systolic function is normal with ejection fraction of 70%. Right atrium is normal. Right ventricle is normal. Aortic root dimension is normal. Mitral valve annulus is mildly calcified. Mitral valve leaflets are normal with mild mitral regurgitation. Aortic valve appears to be normal with trace of aortic insufficiency. Tricuspid valve shows mild tricuspid regurgitation with normal estimated pulmonary artery systolic pressure of 27. Pulmonary valve shows no pulmonary insufficiency. There is no pericardial effusion. IMPRESSION 1. Normal LV systolic function with ejection fraction of 70%. 2. Mild mitral annulus calcification with mild mitral regurgitation. 3. Mild tricuspid regurgitation with normal estimated pulmonary artery systolic pressure of 27. 4. Trace of aortic insufficiency. MTDD
--- NOTE | 2017-01-02 20:33 | Progress Note ---
- Date 01/02/17 Subjective: The patient was seen in her room accompanied by her . She states she is feeling okay. She denies any pain. She denies feeling lightheaded when standing. The nurses have great difficulty checking her blood pressure when standing secondary to tremulousness. Blood pressure continues to fall today with standing. Patient is asymptomatic. It is uncertain how accurate the blood pressures are when standing. She is not having any jaw tightening with decrease in baclofen. The patient was evaluated by physical therapy yesterday and thought to be at her prior level of functioning. They did not recommend any further physical therapy. Objective Vital signs: Temperature 98.6 F 01/02/17 16:35 Pulse Rate 86 01/02/17 16:35 Respiratory Rate 16 01/02/17 10:39 Blood Pressure 105/66 01/02/17 16:35 Pulse Oximetry 92 01/02/17 16:35 Height/Weight/BMI: Weight 66.8 kg Comments: Orthostatic blood pressures lying 144/71 pulse of 55, sitting 155/71 pulse of 61 , standing 96/56, pulse of 62 Repeat late this afternoon lying 153/101 pulse 72, sitting 168/87 pulse 77, standing 105/66 pulse 86 GEN-alert, no acute distress, upset about being in the hospital CV-regular rate and rhythm, telemetry shows sinus rhythm without ectopy or pauses CHEST-clear to auscultation bilaterally ABD-soft, nontender with positive bowel sounds -no King EXT-no edema NEURO-significant for tremulousness from Parkinson's, mild cognitive deficits from Alzheimer's SKIN-warm and dry and without rashes Results - Labs CBC & Chem 7: 01/01/17 04:43 01/01/17 04:43 Assessment and Plan (1) Syncopal episodes Current visit: Yes Status: Acute Assessment and Plan: 01/02/2017 -Dr. Gilbert Impression Syncopal episode to prior to admission -most likely secondary to orthostatic hypotension Continued orthostatic hypotension. One near syncopal event on 01/01/2017 while in the bathroom with assistance Left bundle branch block-no previous EKG here for comparison-normal ejection fraction, no arrhythmias this hospital course History of hypertension -triamterene hydrochlorothiazide 37.5/25 and diltiazem 180 mg daily are on hold Vascular Parkinson's Alzheimer's dementia Vascular dementia Urinary incontinence Mild chronic kidney disease versus mild acute renal failure-resolved Plan Continued orthostatic blood pressure drops with standing. The patient has been asymptomatic today. No presyncopal events today. Increase activity as tolerated. Possible discharge tomorrow if blood pressure has improved. Could consider adding Midodrine or Florinef. Thigh-high GABRIEL hose ordered yesterday. Echocardiogram reveals normal LV function with EF of 70%. Discussed with case management. Discussed findings and plans at length with the patient and her . The patient's had questions regarding the billing process for observation versus inpatient and I directed him to case management. Hospital Course Summary Disclaimer: The visit summary below is not to be considered part of the above Progress Note. Hospital Course: 12/30/16 13:30 Impression Syncopal episode Dementia Vascular parkinsonism Hypertension Hyperlipidemia Hypothyroidism Depression Chronic urinary incontinence Plan Admit patient to outpatient observation under the care of Dr. Gilbert for further evaluation. Monitor patient. Cardiac telemetry to evaluate for dysrhythmias. May consider further work up such as ECHO Asked nursing staff to obtain orthostatic vital signs every shift. Given the patient was orthostatic with a 20 point drop in her systolic pressure in the emergency room. This was completed following 500 ML's of IV fluids in We'll continue with normal saline and 100 ML per hour. Would hold off at this point from treating urinalysis, urine cultures pending. Patient has had a history of chronic bacteriuria. On 12/09 urine culture reveled Streptococcus Viridians. This was not treated as she was SCDs to bilateral lower extremity for DVT prophylaxis She may have regular diet Will review home medications discuss further orders and plan of care with attending, Dr. Gilbert. At time of discharge medical care will return to primary care provider, Dr. Aguilar 12/31/16 Pt became orthostatic this afternoon with a >50 mmHg drop in SBP from 148 to 95. Discussed options with Dr. Gilbert - likely will give additional IVF. Continue to hold triamterene hydrochlorothiazide and diltiazem Renal function has improved and her electrolytes are stable. Echo ordered, not yet performed. 01/01/2017 -Dr. Gilbert Impression Syncopal episode of undetermined etiology. (This may be due to autonomic dysfunction related to her vascular Parkinson's along with use of antihypertensives and diuretics versus an arrhythmia versus PE versus other.)- Orthostatics are better today but the patient had an episode of near syncope when up to the bathroom. Left bundle branch block-no previous EKG here for comparison-echocardiogram is pending History of hypertension -triamterene hydrochlorothiazide 37.5/25 and diltiazem 180 mg daily are on hold Vascular Parkinson's Alzheimer's dementia Vascular dementia Urinary incontinence Mild chronic kidney disease versus mild acute renal failure Plan Orthostatic blood pressures have improved today off of blood pressure medications, but the patient had a near syncopal event when up to the bathroom. Discussed with who is on-call for the patient's neurologist, Dr. Roldan. He recommended decreasing baclofen to 5 mg by mouth twice a day. If she was still having symptoms and was not having difficulties with muscle spasms, could discontinue baclofen and see if orthostatic symptoms resolved. Could also consider adding either Midodrine or Florinef. He further stated Parkinson's patients could have symptoms of presyncope even without significant drop in blood pressure. Echocardiogram is pending Discussed with case management. Discussed with neurology. Discussed with the patient's . The patient is not stable for dismissal today secondary to near syncopal event.
[2017-01-02] MEDS: GABAPENTIN 400 MG CAPSULE PO SCH (21:36)
[2017-01-02] MEDS: DONEPEZIL 10 MG TABLET PO SCH (21:36)
[2017-01-03] MEDS: LEVOTHYROXINE 75 MCG TABLET PO SCH (05:56)
[2017-01-03] MEDS: BACLOFEN 10 MG TABLET PO SCH (08:51)
[2017-01-03] MEDS: CITALOPRAM 10 MG TABLET PO SCH (08:51)
[2017-01-03] MEDS: RYTARY PO SCH (08:52)
[2017-01-03] MEDS: MULTI-VITAMIN + MINERAL TABLET PO SCH (08:52)
[2017-01-03] MEDS: ASPIRIN 81 MG CHEWABLE TABLET PO SCH (08:52)
[2017-01-03] MEDS: FLUTICASONE NASAL SPRAY 50mcg EA NOSTRIL SCH (08:52)
[2017-01-03] MEDS: LORATADINE 10 MG TABLET PO SCH (08:54)
[2017-01-03 10:25] VITALS: BP 150/99; PULSE 77; RESP 18; TEMP 98.2; O2SAT 96
--- NOTE | 2017-01-03 13:27 | Discharge Summary ---
Discharge Information Date of admission: 12/31/16 14:20 Anticipated date of discharge: 01/03/17 Attending Physician: Wilda Gilbert MD Primary care physician: Dr Kiel Aguilar Consults: none - Discharge Diagnosis (1) Syncopal episodes Status: Acute - Procedures Procedures: none - Laboratory Labs: 01/01/17 04:43 01/01/17 04:43 - Microbiology aerococcus viridans urine culture-asymptomatic bacteruria - Radiology Radiology: chest x ray- no acute abnormality Type of Exam(s): CT head/brain wo con Reason for Exam(s): syncope Indication: syncope PROCEDURE: CT head/brain wo con: Encounter: Initial Comparison: None Technique: Axial CT images through the head were performed without contrast. Iterative Reconstruction dose reducing technique was utilized. FINDINGS: Mild generalized atrophy. The ventricles are of normal size, shape, and contour for the patient's age. There are extensive areas of low attenuation in the white matter which most likely represent changes from chronic microvascular ischemia. The brainstem, cerebellum, and cerebral hemispheres otherwise have a normal morphology and CT attenuation. There is no evidence of midline displacement. No hemorrhage, signs of acute territorial stroke, mass effect, mass lesions, or edema is evident. The visualized portions of the skull base, midface, and calvarium demonstrate no abnormality. The paranasal sinuses are well aerated and free of significant disease. The tympanic and mastoid cavities appear normal. IMPRESSION: No acute intracranial abnormality or hemorrhage. There is a preliminary report by virtual radiologic. Echocardiogram IMPRESSION 1. Normal LV systolic function with ejection fraction of 70%. 2. Mild mitral annulus calcification with mild mitral regurgitation. 3. Mild tricuspid regurgitation with normal estimated pulmonary artery systolic pressure of 27. 4. Trace of aortic insufficiency. - Pathology none History of Present Illness HPI: Patient is an 81-year-old female brought to the emergency room today for evaluation following a syncopal episode. Patient has had 2 episodes since midnight last night in which skilled nursing staff assisted patient with bedside commode. During this time, patient became unresponsive, pale, eyes back in her head. Family reports this lasted for approximately 5 minutes each time. Further evaluation was performed in the emergency room. CBC is normal, electrolytes normal, renal function slightly elevated with a BUN of 31, creatinine 1.4, glucose 140. Troponin negative. A urinalysis is obtained. It does show 1+ leukocyte esterase with 5-10 WBCs and a trace bacteria is negative. Twelve-lead EKG shows sinus rhythm with left bundle branch block. It is unclear if this is new. CT scan of the head did not reveal any acute intracranial abnormality or hemorrhage. Orthostatic vital signs are obtained- lying-153/75, pulse 59, sitting 142/65, pulse 67, standing 132/76, pulse 64. She is asymptomatic during orthostatics. Given multiple syncopal episodes. The hospitalist services were contacted and accepted patient for outpatient observation admission for further evaluation and treatment. Beatriz is seen while she is still in the emergency room accompanied by her daughter and . She has a very flat affect with a known history of dementia and Parkinson's. Majority of information and all history is obtained from and daughter. Did do indicate that she is a do not resuscitate and this orders written Objective Vital signs: Temperature 98.2 F 01/03/17 08:16 Pulse Rate 77 01/03/17 10:24 Respiratory Rate 18 01/03/17 08:16 Blood Pressure 150/99 H 01/03/17 10:24 Pulse Oximetry 96 01/03/17 10:24 Height/Weight/BMI: Weight 66.1 kg Hospital Course This is a general summary of the patient's hospital course. For more details refer to the complete medical record. Hospital course: Impression Syncopal episode orthostatic hypotension Dementia Vascular parkinsonism Hypertension Hyperlipidemia Hypothyroidism Depression Chronic urinary incontinence Asymptomatic bacteriuria Hospital course The patient was admitted on the morning of 12/30/2016 after having 2 syncopal events while up to the bathroom the previous evening at her skilled nursing. She was found to have orthostatic hypotension. This is likely related to her Parkinson's like syndrome and autonomic dysfunction. She had been taking triamterene hydrochlorothiazide and diltiazem for blood pressure control. She did receive both of her blood pressure medications at the skilled nursing on the morning of admission. Both of these medications were discontinued when she was hospitalized and the patient was given IV fluids. The patient was placed on telemetry and had no arrhythmias noted. Echocardiogram was obtained which was essentially normal. She was continuing to have orthostasis with blood pressure drops down into the 90s systolic with standing. After discussion with neurology , her baclofen was decreased from 10 mg twice daily to 5 mg twice daily. On the patient was no longer orthostatic when standing up. She did have one episode on 01/01/2017 when up to the bathroom when the nurses thought she was presyncopal, but the patient states she was just trying to reach for the bathroom railing. The patient was evaluated twice by physical therapy during this hospital course and was thought to be at her prior level of function. She was able to walk 100 feet with a walker and assist on the day of discharge. I discussed with the patient and her that we may need to allow some hypertension with lying or sitting in order to prevent hypotension when standing. I would recommend that she stay off of triamterene hydrochlorothiazide and diltiazem. If she is orthostatic off of these medications, could consider either stopping baclofen or adding Florinef or Midodrine. I believe the baclofen had been started initially for jaw clenching. She states that she has not had any troubles with jaw clenching after we decreased her dose of baclofen. The patient was found to have asymptomatic bacteriuria during this hospital stay. She was not treated with antibiotics since she is asymptomatic. White count has been normal and she has been afebrile. On 01/03/2017 the patient was alert and in no acute distress. She states her tremors were better after having gone for a walk. She had been eating and drinking well. Chest was clear to auscultation and cardiovascular reveals a regular rate and rhythm. Abdomen is soft and nontender. Extremities are free of edema. We'll dismiss to senior living today. She will need follow-up with Dr. Aguilar in the next 1 week. Discharge Plan - Med Rec/Dispo Referrals/Follow Up: Kiel Aguilar MD [Physician] - [facility] Instructions: Syncope (GEN) Prescriptions: New Baclofen [Lioresal] 5 mg PO BID tablet Continue Fluticasone Nasal [place] [Flonase] 1 spray TEJAS DAILY Guaifenesin/Dextromethorphan [Guaifenesin Dm Syrup] 10 ml PO Q4H PRN PRN Reason: Cough Carbidopa/Levodopa [Rytary ER 23.75 mg-95 mg Cap] 3 cap PO BID Loratadine [Claritin] 10 mg PO DAILY Levothyroxine Tab [Synthroid] 75 mcg PO ACB Gabapentin [Neurontin] 400 mg PO HS Donepezil [Aricept] 10 mg PO HS Aspirin [Elsa Aspirin] 81 mg PO DAILY Citalopram [Celexa] 10 mg PO DAILY Acetaminophen 650 mg PO Q4H PRN PRN Reason: Pain Multivitamin with Minerals [Ebo-G-Esug-Minerals] 1 each PO DAILY Cranberry Fruit [Cranberry] 400 mg PO DAILY Propylene Glycol/Peg 400 [Systane 0.3-0.4% Eye Drops] 1 drop EACH EYE BID PRN PRN Reason: Prn Orders Discontinued Triamterene/Hydrochlorothiazid [Dyazide 37.5-25 Capsule] 1 each PO DAILY dilTIAZem HCl [Diltiazem 24Hr ER] 180 mg PO DAILY Baclofen [Lioresal] 10 mg PO BID Acetaminophen [Pain Reliever] 500 mg PO PRN PRN PRN Reason: Pain Discharge Instructions/Outpatient Orders: Provider Discharge Instructions Location: Determined By Patient
--- NOTE | 2017-01-03 14:02 | Extended Care Facility Orders ---
Admission Orders Allergies/Adverse Reactions: Allergies morphine Allergy (Mild, Verified 02/12/08 08:46) procaine Allergy (Mild, Verified 02/12/08 08:46) Sulfa (Sulfonamide Antibiotics) Allergy (Mild, Verified 02/12/08 08:46) Admitting Diagnosis: Syncope Admitting Physician: Wilda Gilbert MD Attending Physician: Wilda Gilbert MD Code Status: Full Code Anticiapted Length of Stay: 30 days or less Rehab Potential: good Rehab Prognosis: good Diet: regular May use Facility Protocol or Standing Orders: Yes May have flu vaccine: Yes Evaluations/Treatment: [facility] Certification: I certify that SNF services are required to be given on an Inpatient basis because of the patients need for jail care on a continuing basis for the condition(s) for which he/she received inpatient hospital services prior to his/her transfer to the SNF. SNF inpatient care is necessary for the following reasons Indication for [facility]: Neuro Assessment, Med Admininistration, Other ( monitor for hypotension) - Additional Information Resident is Aware of Diagnosis: Yes Referrals: Kiel Aguilar MD [Physician] - Additional Orders: monitor blood pressure. Notify Dr Aguilar if the patient is having low blood pressure or if she is lightheaded with standing. Also notify him if she is having jaw spasms
== END 2017-01-03 14:30 | DRG 312 ==
LOC: ED 09:04 → MED 09:04
PROVIDERS: ADMIT Internal Medicine; ATTEND Internal Medicine